=== PATIENT | female | born 1995 | race Caucasian/White ===

== ENCOUNTER 2016-07-24 11:58 | Observation (INO) | payer SELFPAY ==
[~2016-07-24 11:58] MED LIST: GLYCOPYRROLATE INJ 0.4 MG/2 ML VIAL ONE; LIDOCAINE 2% INJ-PF (20 MG/ML) 10 ML AMPUL ONE; NEOSTIGMINE METHYLSULFATE 10 MG/10 ML VIAL ONE; ROCURONIUM BROMIDE INJ 50 MG/5 ML VIAL IV ONE; SUCCINYLCHOLINE CHLORIDE INJ 200 MG/10 ML VIAL ONE
--- NOTE | 2016-07-24 13:19 | ER Document Report ---
ED Medical Screen (RME) - General Stated Complaint: STOMACH PAIN Time seen by provider: 13:16 Mode of Arrival: Ambulatory Information source: Patient Notes: I have greeted and performed a rapid initial assessment of this patient. A comprehensive ED assessment and evaluation of the patient, analysis of test results and completion of the medical decision making process will be conducted by additional ED providers. - HPI Patient complains to provider of: LOWER ABD PAIN Onset: Yesterday Onset/Duration: Sudden Quality of pain: Sharp, Stabbing Severity: Severe Pain Level: 5 - AT ITS WORST, NOW A 2 Associated Symptoms: Abdominal pain, Nausea, Vomiting - X 2 TODAY, ALOT LAST NIGHT. denies: Diarrhea, Fever Exacerbated by: Denies Relieved by: Denies Similar symptoms previously: Yes Recently seen / treated by doctor: No - Related Data Smoking: Non-smoker Frequency of alcohol use: None Drug Abuse: None Pertinent History: OVARIAN CYSTS Allergies/Adverse Reactions: Sulfa (Sulfonamide Antibiotics) Allergy (Verified 07/24/16 13:16) Physical Exam - Vital signs Vitals: Temp Pulse Resp BP Pulse Ox 98.0 F 76 18 117/71 100 07/24/16 12:46 07/24/16 12:46 07/24/16 12:46 07/24/16 12:46 07/24/16 12:46 Course - Vital Signs Vital signs: Temp Pulse Resp BP Pulse Ox 98.0 F 76 18 117/71 100 07/24/16 12:46 07/24/16 12:46 07/24/16 12:46 07/24/16 12:46 07/24/16 12:46
[2016-07-24 13:46] LABS: ABSOLUTE EOSINOPHILS # (AUTO) 0.2 10^3/uL (0.0-0.6); ABSOLUTE LYMPHOCYTES (AUTO) 1.3 10^3/uL (0.5-4.7); ABSOLUTE MONOCYTES (AUTO) 0.6 10^3/uL (0.1-1.4); BASOPHILS % (AUTO) 0.1 % (0-2); EOSINOPHILS % (AUTO) 3.2 % (0-6); HEMATOCRIT 38.5 % (36.0-47.0); HEMOGLOBIN 13.4 g/dL (12.0-15.5); HGB HCT DIFFERENCE 1.7; LYMPHOCYTES % (AUTO) 21.4 % (13-45); MEAN CORPUSCULAR HEMOGLOBIN 30.5 pg (27.0-33.4); MEAN CORPUSCULAR HGB CONC 34.9 g/dL (32.0-36.0); MEAN CORPUSCULAR VOLUME 88 fl (80-97); MONOCYTES % (AUTO) 10.2 % (3-13); RED CELL DISTRIBUTION WIDTH 12.8 % (11.5-14.0); SEGMENTED NEUTROPHILS % (AUTO) 65.1 % (42-78); WHITE BLOOD COUNT 6.2 10^3/uL (4.0-10.5)
[2016-07-24 13:51] LABS: APPEARANCE,URINE SLIGHTLY-CLOUDY; BILIRUBIN,URINE NEGATIVE (NEGATIVE); GLUCOSE, URINE NEGATIVE (NEGATIVE); KETONES,URINE NEGATIVE (NEGATIVE); LEUKOCYTE ESTERASE,URINE TRACE (NEGATIVE); NITRITE,URINE NEGATIVE (NEGATIVE); PROTEIN,URINE NEGATIVE (NEGATIVE); URINE SPECIFIC GRAVITY 1.025; UROBILINOGEN,URINE NEGATIVE mg/dL (<2.0)
[2016-07-24 14:15] LABS: ALANINE AMINOTRANSFERASE 30 U/L (9-52); ALBUMIN 4.4 g/dL (3.5-5.0); ALKALINE PHOSPHATASE 62 U/L (38-126); ANION GAP 11 (5-19); ASPARTATE AMINO TRANSFERASE 19 U/L (14-36); BILIRUBIN,TOTAL 0.7 mg/dL (0.2-1.3); BLOOD UREA NITROGEN 10 mg/dL (7-20); CALCIUM 9.8 mg/dL (8.4-10.2); CARBON DIOXIDE 23 mmol/L (22-30); CHLORIDE 109 mmol/L (98-107); CREATININE RESULT 0.81 mg/dL (0.52-1.25); GLUCOSE 88 mg/dL (75-110); LIPASE 51.1 U/L (23-300); SODIUM 142.7 mmol/L (137-145); TOTAL PROTEIN 7.2 g/dL (6.3-8.2)
[2016-07-24] MEDS ORDERED: KETOROLAC TROMETHAMINE 60 MG/2 ML SDV IM ONE (14:54)
--- NOTE | 2016-07-24 14:54 | ER Document Report ---
ED General - General Mode of Arrival: Ambulatory Information source: Patient TRAVEL OUTSIDE OF THE U[place] IN LAST 30 DAYS: No - HPI Patient complains to provider of: Low Abdominal Pain Onset: Yesterday Onset/Duration: Sudden, Constant Associated symptoms: Vomiting Exacerbated by: Movement <OSITO PELAEZ - Last Filed: 07/24/16 17:08> <RACHELLE SALASMY - Last Filed: 07/24/16 18:07> - General Chief Complaint: Abdominal Pain Stated Complaint: STOMACH PAIN Notes: Patient is a 20-year-old female presenting to the emergency department chief complaint abdominal pain onset last night after roughhousing with her niece. Patient states that the pain was so bad that she began vomiting. She continued to vomit this morning. Patient has taken Tylenol for her pain, but states that it has been constant since approximately 2300. Patient denies dysuria, pain with intercourse, history of STD, or back pain. Patient has a family history of ovarian cysts and states that she has had an ovarian cyst in the past. Patient also mentions that she is being treated for UTI for the past 2 days. (OSITO PELAEZ) - Related Data Allergies/Adverse Reactions: Sulfa (Sulfonamide Antibiotics) Allergy (Verified 07/24/16 13:16) Home Medications: Current Home Medications Ciprofloxacin HCl [Cipro 500 mg Tablet] 500 mg PO Q12 07/24/16 [History] Past Medical History - General Information source: Patient - Social History Smoking Status: Unknown if Ever Smoked Chew tobacco use (# tins/day): No Frequency of alcohol use: None Drug Abuse: None Lives with: Spouse/Significant other Family History: Reviewed & Not Pertinent Patient has suicidal ideation: No Patient has homicidal ideation: No Renal/ Medical History: Reports: Hx Ovarian Cysts. Denies: Hx Peritoneal Dialysis <OSITO PELAEZ - Last Filed: 07/24/16 17:08> Review of Systems - Review of Systems Constitutional: No symptoms reported EENT: No symptoms reported Cardiovascular: No symptoms reported Respiratory: No symptoms reported Gastrointestinal: See HPI, Abdominal pain - Suprapubic, Vomiting Genitourinary: No symptoms reported. denies: Dysuria Female Genitourinary: No symptoms reported. denies: Vaginal discharge, Painful intercourse Musculoskeletal: No symptoms reported. denies: Back pain Skin: No symptoms reported Hematologic/Lymphatic: No symptoms reported Neurological/Psychological: No symptoms reported -: Yes All other systems reviewed and negative <OSITO PELAEZ - Last Filed: 07/24/16 17:08> Physical Exam - Vital signs Interpretation: Normal - General General appearance: Alert - HEENT Head: Normocephalic, Atraumatic Eyes: Normal Pupils: PERRL - Respiratory Respiratory status: No respiratory distress Chest status: Nontender Breath sounds: Normal Chest palpation: Normal - Cardiovascular Rhythm: Regular Heart sounds: Normal auscultation Murmur: No - Abdominal Distension: No distension Bowel sounds: Normal Tenderness: Tender - Tenderness to palpation over entire suprapubic region.. No : Guarding, Rebound - No rebound or rigidity. Organomegaly: No organomegaly - Back Back: Normal, Nontender - Extremities General upper extremity: Normal inspection, Nontender, Normal color, Normal ROM , Normal temperature General lower extremity: Normal inspection, Nontender, Normal color, Normal ROM , Normal temperature - Neurological Neuro grossly intact: Yes Cognition: Normal Orientation: AAOx4 Fredy Coma Scale Eye Opening: Spontaneous Fredy Coma Scale Verbal: Oriented Fredy Coma Scale Motor: Obeys Commands Fredy Coma Scale Total: 15 Speech: Normal - Psychological Associated symptoms: Normal affect, Normal mood - Skin Skin Temperature: Warm Skin Moisture: Dry Skin Color: Normal <OSITO PELAEZ - Last Filed: 07/24/16 17:08> Course - Laboratory Result Diagrams: 07/24/16 13:20 07/24/16 13:20 - Consults Dr. Payne Time consulted: 16:57 <OISTO PELAEZ - Last Filed: 07/24/16 17:08> - Laboratory Result Diagrams: 07/24/16 13:20 07/24/16 13:20 <FREDY SALAS - Last Filed: 07/24/16 18:07> - Re-evaluation Re-evalutation: 07/24/16 17:00 I personally performed the services described in the documentation, reviewed and edited the documentation which was dictated to my scribe in my presence, and it accurately records my words and actions. Patient presents with severe lower abdominal pain. Patient is 20-year-old previously healthy female onset of severe abdominal pain last evening constant severe doubling her over last several hours and then there was a period where got a little bit better. It was persistent today and she came for evaluation. She is from out of town no medical problems is with no history of gynecological surgery she thinks she may have had an ovarian cyst one time in the past but is never been diagnosed with 1. She has a strong family history of ovarian cyst. There is no associated fever or chills back pain or urinary symptoms although she went to the urgent care 2 days ago and was diagnosed with UTI on Cipro she has no history of pelvic pain vaginal discharge gonorrhea or chlamydia. She states at the onset of the pain and this morning at the greatest intensity of the pain she was vomiting with this. On examination she has entire lower abdominal tenderness worse on the right with some guarding but no rebound rigidity she is normotensive and not tachycardic. Stat pelvic ultrasound after negative urine test called by radiologist complex ovarian mass on the right side with a large amount of free fluid concerning for blood. Ordered a urinary hCG which was negative and do a blood hCG. IV fluids pain medication spoke with the on-call LIGHT OUT EXAMINER physician Dr. Mayer states that she herself will not be able to come see the patient for several hours however she is going to contact one of her partners try to get them to come down and see the patient. And states that she will relay back to us when she find someone to come and evaluate the patient. 07/24/16 18:06 Dr. Altamirano in the ED 1730 to see evaluate patient take patient to the operating room. (FREDY SALAS) - Vital Signs Vital signs: Temp Pulse Resp BP Pulse Ox 98.0 F 76 18 117/71 100 07/24/16 12:46 07/24/16 12:46 07/24/16 12:46 07/24/16 12:46 07/24/16 12:46 - Laboratory Laboratory results interpreted by me: 07/24/16 07/24/16 07/24/16 13:20 13:20 13:20 Plt Count 146 L Chloride 109 H Ur Leukocyte Esterase TRACE H - Consults Dr. Payne Reason for consultation: 07/24/16 16:[address] Payne about patient's case. Dr. Payne states that she is unable to come down to the ED at this time, but will attempt to contact one of her partners to come in. (OSITO PELAEZ) Critical Care Note - Critical Care Note Total time excluding time spent on procedures (mins): 60 <FREDY SALAS - Last Filed: 07/24/16 18:07> Discharge <OSITO PELAEZ - Last Filed: 07/24/16 17:08> - Discharge Admitting Provider: [facility] Admitted: Surgical Floor <FREDY SALAS - Last Filed: 07/24/16 18:07> - Discharge Clinical Impression: complex ovarian mass , acute hemorrhagic free fluid Condition: Stable Disposition: ADMITTED INPATIENT Scribe Documentation - Scribe Written by Scribe:: Osito Pelaez 07/24/2016 1454 acting as scribe for :: Adan <OSITO PELAEZ - Last Filed: 07/24/16 17:08>
[2016-07-24 15:03] LABS: URINE BARBITURATES SCREEN NEGATIVE; URINE METHADONE SCREEN NEGATIVE; URINE OPIATES LOW NEGATIVE; URINE PHENCYCLIDINE SCREEN NEGATIVE
[2016-07-24] MEDS ORDERED: NORMAL SALINE 1000 ML 1,000 ML IV ONE (16:47)
[2016-07-24] MEDS ORDERED: FENTANYL CITRATE INJ/PF 100 MCG/2 ML AMPUL IV ONE ×2 (16:59→18:09)
--- NOTE | 2016-07-24 17:58 | CONSULTATION REPORT E ---
Consultation Report NAME: ELIO BALTAZAR : 1995 AGE: 20Y DATE: 07/24/2016 TO: KAREN LITTLE M.D. FROM: Tung RUIZ Requesting Physician HISTORY OF PRESENT ILLNESS: The patient is a 20-year-old female, 0, with last menstrual period of 06/30, presenting today with what appears to be a hemorrhagic corpus luteum cyst that is actively bleeding. Ultrasound shows blood surrounding the uterus. Her abdomen is very tender, although she feels better now after some pain medicines. PAST MEDICAL HISTORY: Negative. PAST SURGICAL HISTORY: Negative. ALLERGIES: SULFA. MEDICATIONS: None. PROFESSIONAL BUILDER HISTORY: She is not on control and her test is negative. PHYSICAL EXAMINATION: VITAL SIGNS: She is afebrile and vital signs are stable. HEENT: Unremarkable. NECK: Supple. LUNGS: Clear. HEART: Regular rate and rhythm. ABDOMEN: Tender in the low pelvis. There is perhaps mild guarding. PELVIC: Deferred to the OR. LABORATORY DATA: Her labs show stable H and H at this time; however, this may drop. Her beta hCG is less than 2. ASSESSMENT: Likely bleeding corpus luteum cyst. PLAN: Laparoscopy to evacuate the blood and cauterize the bleeding vessel. We have discussed the risks and benefits of laparoscopy. All attempts will be made to converse the ovaries and tubes. DICTATING PHYSICIAN: KAREN LITTLE M.D. [id number] PHY#: [id number] ID: [id number] JOB#: [id number] ACCT: [id number] cc:KAREN LITTLE M.D. >
[2016-07-24] MEDS ORDERED: OXYCODONE-ACETAMINOPHEN 5-325 MG TABLET PO PRN (18:17)
[2016-07-24] MEDS ORDERED: RINGERS SOLUTION,LACTATED 1,000 ML IV PRN (18:19)
[2016-07-24] MEDS ORDERED: ONDANSETRON 4 MG TAB.RAPDIS PO PRN (18:20)
[2016-07-24] MEDS ORDERED: FENTANYL CITRATE INJ/PF 250 MCG/5 ML AMPULE ONE (19:17)
[2016-07-24] MEDS ORDERED: EPHEDRINE SULFATE INJ 50 MG/1 ML AMPULE ONE (19:18)
[2016-07-24] MEDS ORDERED: MIDAZOLAM 2 MG/2 ML INJ ONE (19:18)
[2016-07-24] MEDS ORDERED: ACETAMINOPHEN 100 ML IV ONE (19:19)
[2016-07-24] MEDS ORDERED: DEXMEDETOMIDINE INJ 80 MCG/20 ML VIAL IV ONE (19:19)
[2016-07-24] MEDS ORDERED: PROPOFOL INJ 200 MG/20 ML VIAL IV ONE (19:19)
[2016-07-24] MEDS ORDERED: IBUPROFEN 800 MG TABLET PO ONE (19:30)
[2016-07-24] MEDS ORDERED: MEPERIDINE HCL/PF INJ 25 MG/1 ML DISP.SYRIN IV PRN (20:12)
[2016-07-24] MEDS ORDERED: MORPHINE SULFATE 10 MG/ML INJ IV PRN (20:12)
[2016-07-24] MEDS ORDERED: FENTANYL CITRATE INJ/PF 100 MCG/2 ML AMPUL IV PRN ×3 (20:12)
[2016-07-24] MEDS ORDERED: PROMETHAZINE HCL INJ 25 MG/1 ML VIAL IV PRN ×2 (20:12)
[2016-07-24] MEDS ORDERED: DIPHENHYDRAMINE HCL 50 MG/ML VIAL IV PRN (20:12)
--- NOTE | 2016-07-24 21:00 | Operative Report ---
Operative Report DATE OF SURGERY: 07/24/16 PREOPERATIVE DIAGNOSIS: Bleeding ovarian cyst POSTOPERATIVE DIAGNOSIS: Bleeding right corpus luteum cyst OPERATION: Laparoscopy and removal of right corpus luteum cyst SURGEON: KAREN BERNAL ASSEMBLER INSTALLER GENERAL: OR staff ANESTHESIA: GA TISSUE REMOVED OR ALTERED: Right corpus luteum cyst COMPLICATIONS: None ESTIMATED BLOOD LOSS: 200 mL INTRAOPERATIVE FINDINGS: Bleeding right corpus luteum cyst PROCEDURE: Patient was taken to the OR and placed in supine position. Gen. anesthesia was induced. She was placed in dorsolithotomy position using Wali stirrups. Perineum and vagina and abdomen were prepared and draped in sterile fashion. An incision was made the umbilicus and the natural umbilical defect was identified and dilated using Lorri clamp. This allowed a 5 mm port to be placed bluntly. Laparoscopy confirmed appropriate placement. Suprapubic incision was made 5 mm port placed sharply under laparoscopic visualization. A right lateral incision was made and a 5 mm port was placed sharply under laparoscopic visualization. Pelvis was irrigated and suctioned free of fluid. This was blood. The left ovary appeared normal the right ovary was bleeding just below the infundibulopelvic pedicle. The site was a bleeding corpus luteum cyst at the very tip of the ovary just below the mandibular pelvic pedicle. The corpus luteum cyst was removed. Cautery was used to achieve some degree of hemostasis however the site continued to lose at this point. FloSeal was then used and injected into the ovarian cyst site. The thrombin and the FloSeal appeared to stop nearly all the bleeding. The ovary was allowed to rest in its natural configuration. The pelvis was irrigated of blood. The pressure was reduced by allowing some of the CO2 gas to leak out of the abdomen. With the intra-abdominal pressure reduced and the ovary not on tension it still appeared hemostatic. This point allowed the remainder of the CO2 gas to leak out. The suprapubic port and left lateral port were removed. The umbilical port and scope were removed at the same time. The fascia at the umbilicus was closed with a 2-0 Vicryl and the skin closed with 4-0 undyed Vicryl stitch and all 3 port sites. The sponge stick was removed from the vagina. Patient was extubated in the OR and taken to recovery in stable condition.
[2016-07-24] MEDS ORDERED: FENTANYL CITRATE INJ/PF 100 MCG/2 ML AMPUL ONE (21:20)
[2016-07-24] MEDS ORDERED: PROMETHAZINE HCL INJ 25 MG/1 ML VIAL ONE (21:40)
[2016-07-24] MEDS ORDERED: ONDANSETRON HCL INJ/PF 4 MG/2 ML SDV IV PRN (23:15)
[2016-07-25] MEDS: OXYCODONE-ACETAMINOPHEN 5-325 MG TABLET PO PRN ×2 (01:13→06:46)
[2016-07-25 07:31] LABS: ABSOLUTE EOSINOPHILS # (AUTO) 0.2 10^3/uL (0.0-0.6); ABSOLUTE LYMPHOCYTES (AUTO) 1.6 10^3/uL (0.5-4.7); ABSOLUTE MONOCYTES (AUTO) 0.6 10^3/uL (0.1-1.4); ABSOLUTE NEUT (AUTO) 2.6 10^3/uL (1.7-8.2); BASOPHILS % (AUTO) 0.2 % (0-2); EOSINOPHILS % (AUTO) 3.8 % (0-6); HEMATOCRIT 32.2 % (36.0-47.0); HEMOGLOBIN 11.4 g/dL (12.0-15.5); LYMPHOCYTES % (AUTO) 31.9 % (13-45); MEAN CORPUSCULAR HGB CONC 35.5 g/dL (32.0-36.0); MEAN CORPUSCULAR VOLUME 87 fl (80-97); MONOCYTES % (AUTO) 12.4 % (3-13); RED BLOOD COUNT 3.69 10^6/uL (3.72-5.28); RED CELL DISTRIBUTION WIDTH 12.4 % (11.5-14.0); SEGMENTED NEUTROPHILS % (AUTO) 51.7 % (42-78); WHITE BLOOD COUNT 4.9 10^3/uL (4.0-10.5)
[2016-07-25 08:51] VITALS: BP 113/69
[2016-07-25] MEDS ORDERED: IBUPROFEN 800 MG TABLET PO SCH (10:00)
--- NOTE | 2016-07-25 10:04 | PDOC PROGRESS REPORT ---
Subjective Progress Note for:: 08/01/16 Subjective:: She states she is doing well following a regular diet ambulating well. She is ready to go home Physical Exam - Physical Exam Vital Signs: Temp Pulse Resp BP Pulse Ox 98.5 F 68 16 113/69 99 07/25/16 08:48 07/25/16 08:48 07/25/16 08:48 07/25/16 07:52 07/25/16 08:48 Intake & Output 07/24/16 07/25/16 07/26/16 06:59 06:59 06:59 Intake Total 1200 Output Total 390 Balance 810 General appearance: PRESENT: no acute distress, well-developed, well-nourished GI/Abdominal exam: PRESENT: normal bowel sounds, soft. ABSENT: distended, guarding, mass, organolmegaly, rebound, tenderness Result Laboratory Results: 07/25/16 06:15 07/24/16 07/25/16 19:00 06:15 WBC 4.9 RBC 3.69 L Hgb 11.4 L Hct 32.2 L MCV 87 MCH 31.0 MCHC 35.5 RDW 12.4 Plt Count 125 L Seg Neutrophils % 51.7 Lymphocytes % 31.9 Monocytes % 12.4 Eosinophils % 3.8 Basophils % 0.2 Absolute Neutrophils 2.6 Absolute Lymphocytes 1.6 Absolute Monocytes 0.6 Absolute Eosinophils 0.2 Absolute Basophils 0.0 Blood Type O POSITIVE Antibody Screen NEGATIVE Impressions: Transvaginal US 07/24/16 14:55 IMPRESSION: Large amount of free pelvic fluid with low level internal echoes worrisome for hemorrhage Convex right adnexal mass with cystic and solid components, and peripheral color flow and Doppler waveforms suggesting against torsion. This could represent an of ovary with a hemorrhagic cyst, ovary with tumor, or ovary with ectopic . Uterus, left ovary unremarkable. Assessment & Plan - Diagnosis (1) Corpus luteum cyst hemorrhage Is this a current diagnosis for this admission?: Yes - Time Time Spent with patient: Less than 15 minutes Medications reviewed and adjusted accordingly: Yes Anticipated discharge: Home Within: within 24 hours - We discussed home care and that she is able to shower normally. She should follow up in 1 week.
--- NOTE | 2016-07-25 10:11 | PDOC DISCHARGE SUMMARY ---
Final Diagnosis Discharge Date: 07/25/16 - Final Diagnosis (1) Corpus luteum cyst hemorrhage Is this a current diagnosis for this admission?: Yes Discharge Data - Discharge Medication Home Medications: Oxycodone HCl/Acetaminophen [Percocet 5-325 mg Tablet] 1 tab PO Q6HP PRN #30 tablet 07/25/16 - Diagnosis Test Laboratory: Temp Pulse Resp BP Pulse Ox 98.5 F 68 16 113/69 99 07/25/16 08:48 07/25/16 08:48 07/25/16 08:48 07/25/16 07:52 07/25/16 08:48 07/25/16 06:15 RBC 3.69 L Hgb 11.4 L Hct 32.2 L - Discharge information/Instructions Discharge Activity: Activity As Tolerated, Balance Activity w/Rest, No Driving, No Lifting Over 10 Pounds, No Lifting/Push/Pulling, Pelvic Rest, No tub bath Discharge Diet: As Tolerated Disposition: HOME, SELF-CARE Follow up with: [facility] in: 1, Weeks - Patient was admitted and underwent a laparoscopy for a ruptured corpus luteum cyst. During the laparoscopy the corpus luteum cyst was removed and hemostasis was obtained with cautery and FloSeal. Please see the operative report for details. Postop day 1 she is doing well tolerating a regular diet. She states she is ready to go home. She is going to be discharged to home to rest. She'll follow up in 1 week. Condition on discharge is good.
== END 2016-07-25 11:15 | disposition home or self-care (01) ==
LOC: ER 11:58 → EH 18:06 → UNDOADMOB 18:11 → EH 18:11 → 2N 22:10
PROVIDERS: ADMIT Obstetrics & Gynecology; ATTEND Obstetrics & Gynecology
PROC: 3E023GC Introduction of Other Therapeutic Substance into Muscle, Percutaneous Approach (ICD-10-PCS; 2016-07-24)
PROC: 3E033GC Introduction of Other Therapeutic Substance into Peripheral Vein, Percutaneous Approach (ICD-10-PCS; 2016-07-24)
PROC: 3E033GC Introduction of Other Therapeutic Substance into Peripheral Vein, Percutaneous Approach (ICD-10-PCS; 2016-07-24)
PROC: 3E0337Z Introduction of Electrolytic and Water Balance Substance into Peripheral Vein, Percutaneous Approach (ICD-10-PCS; 2016-07-24)
PROC: 0UB04ZZ Excision of Right Ovary, Percutaneous Endoscopic Approach (ICD-10-PCS; principal; 2016-07-24 19:30)
DX: N83.11 Corpus luteum cyst of right ovary (principal)
CPT/HCPCS: 96376; 99291; 96372; 96361; 96374; 86900; 86901; 36415 ×2; 86850; 84702; 83690; 85025 ×2; 80053; 81001; 80307; 86920; 88304 ×2; 76830; 93976; 58662; G0378 ×2; J2250; J3490 ×3; J1885; S0119; J3010 ×2; J2550; J0330; J2405; J7030; J2704; J0131; 840

== ENCOUNTER 2016-09-29 18:28 | Emergency (ER) | payer SELFPAY ==
--- NOTE | 2016-09-29 20:14 | ER Document Report ---
ED General - General Chief Complaint: Abdominal Pain Stated Complaint: LOWER ABDOMINAL PAIN Mode of Arrival: Ambulatory Information source: Patient Notes: Patient presents to the emergency department with complaints of lower abdominal , back pain discomfort with voiding and sitting down. She reports symptoms since yesterday. Reports history of ovarian cyst rupture in July. She reports yesterday this felt like the same type of pain and discomfort but does not feel like it today. She reports the pain comes and goes and is sharp when it comes. She denies fever or diarrhea reports vomited twice yesterday. Patient also reports vaginal discharge with odor. Reports she is sexually active one partner and uses condoms for control. Patient reported pain 4/ 5 when she first arrived but reports no pain at this time. Declines pain medication. TRAVEL OUTSIDE OF THE [place] IN LAST 30 DAYS: No - HPI Onset: Yesterday Onset/Duration: Sudden, Waxing and waning Quality of pain: Sharp Severity: None - now Associated symptoms: Vomiting - yesterday Exacerbated by: Sitting Relieved by: Denies Similar symptoms previously: Yes Recently seen / treated by doctor: No - Related Data Allergies/Adverse Reactions: Sulfa (Sulfonamide Antibiotics) Allergy (Verified 09/29/16 18:32) Past Medical History - General Information source: Patient Last Menstrual Period: 09/16/16 - Social History Smoking Status: Unknown if Ever Smoked Cigarette use (# per day): No Frequency of alcohol use: None Drug Abuse: None Lives with: Family - visiting from [place] Family History: Reviewed & Not Pertinent Patient has suicidal ideation: No Patient has homicidal ideation: No Renal/ Medical History: Reports: Hx Ovarian Cysts. Denies: Hx Peritoneal Dialysis Past Surgical History: Reports: Hx Gynecologic Surgery Review of Systems - Review of Systems Notes: Review HPI for review of systems., All other systems negative Physical Exam - Vital signs Vitals: Temp Pulse Resp BP Pulse Ox 97.8 F 64 16 114/70 100 09/29/16 18:32 09/29/16 18:32 09/29/16 18:32 09/29/16 18:32 09/29/16 18:32 - Notes Notes: PHYSICAL EXAMINATION: GENERAL: Well-appearing and in no acute distress nontoxic looking HEAD: Atraumatic, normocephalic. EYES: Pupils equal round and reactive to light, extraocular movements intact, sclera anicteric, conjunctiva are normal. ENT: nares patent, oropharynx clear without exudates. Moist mucous membranes. NECK: Normal range of motion, supple without lymphadenopathy LUNGS: CTAB and equal. No wheezes rales or rhonchi. HEART: Regular rate and rhythm without murmurs ABDOMEN: Soft, lower abdominal tenderness. No guarding, no rebound BACK: No pain on palpation EXTREMITIES: Normal range of motion, no pitting edema. No cyanosis. NEUROLOGICAL: Cranial nerves grossly intact. Normal sensory/motor exams. PSYCH: Normal mood, normal affect. SKIN: Warm, Dry, normal turgor, no rashes or lesions noted - Genitourinary External exam: Normal Speculum exam: Vaginal discharge Vaginal bleeding: None Bimanuel exam: Normal Course - Re-evaluation Re-evalutation: 09/29/16 20:15 Patient instructed on pending labs pelvic ultrasound. 09/29/16 22:29 Tylenol given for pain and patient reports no pain at this time. Updated on ultrasound which was negative. Labs unremarkable, Wet mount shows yeast and BV. Patient will be treated with Diflucan and Flagyl. She does not wish to wait for STD results and will be called if they are positive. Patient was also instructed on the importance of follow-up with her SUPERVISOR SOLDERING. - Vital Signs Vital signs: Temp Pulse Resp BP Pulse Ox 97.8 F 84 17 123/75 99 09/29/16 18:32 09/29/16 22:41 09/29/16 22:41 09/29/16 22:41 09/29/16 22:41 - Laboratory Result Diagrams: 09/29/16 21:09 09/29/16 21:09 Laboratory results interpreted by me: 09/29/16 09/29/16 20:15 21:09 Monocytes % 13.1 H Eosinophils % 6.7 H Ur Leukocyte Esterase MODERATE H - Diagnostic Test Radiology reviewed: Image reviewed, Reports reviewed - US/U/ S NON OB PEL TV W/DOPPLER IMPRESSION: NORMAL TRANSVAGINAL PELVIC ULTRASOUND. SPECIFICALLY, INTERVAL RESOLUTION OF ABNORMAL FINDINGS DEMONSTRATED ON 2016 ULTRASOUND Procedures - Pelvic Exam Pelvic exam Cultures obtained: Yes Wet prep obtained: Yes Herpes culture obtained: No POC sent to lab: No Foreign body removed: No Bimanual exam performed: Yes Witnessed by: juany PCT Discharge - Discharge Clinical Impression: Lower abdominal pain, Vaginal discharge, Bacterial vaginosis, Yeast infection Condition: Stable Disposition: HOME, SELF-CARE Instructions: Abdominal Pain ([facility]), Vaginosis, Bacterial ([facility]), Vaginal Yeast Infection ([facility]), Fluconazole ([facility]), Metronidazole ([facility]) Additional Instructions: *You have been evaluated for abdominal pain, bacterial vaginosis, yeast infection *Take medication as prescribed *Follow up with your TIE MILL OPERATOR upon return to [place] *Avoid sexual intercourse until follow up with crusher operator *Return to ED for worsening condition, changes, needs, concerns *Return to ED if not better in 24 hours Prescriptions: Metronidazole [Flagyl 500 mg Tablet] 500 mg PO BID #14 tablet
[2016-09-29 20:50] LABS: AMORPHOUS SEDIMENT,URINE 1+ /HPF; APPEARANCE,URINE CLOUDY; BILIRUBIN,URINE NEGATIVE (NEGATIVE); GLUCOSE, URINE NEGATIVE (NEGATIVE); KETONES,URINE NEGATIVE (NEGATIVE); LEUKOCYTE ESTERASE,URINE MODERATE (NEGATIVE); NITRITE,URINE NEGATIVE (NEGATIVE); PROTEIN,URINE NEGATIVE (NEGATIVE); URINE SPECIFIC GRAVITY 1.024; UROBILINOGEN,URINE NEGATIVE mg/dL (<2.0)
[2016-09-29] MEDS ORDERED: ACETAMINOPHEN 325 MG TABLET PO ONE (21:19)
[2016-09-29 21:22] LABS: ABSOLUTE EOSINOPHILS # (AUTO) 0.4 10^3/uL (0.0-0.6); ABSOLUTE LYMPHOCYTES (AUTO) 2.1 10^3/uL (0.5-4.7); ABSOLUTE MONOCYTES (AUTO) 0.7 10^3/uL (0.1-1.4); ABSOLUTE NEUT (AUTO) 2.4 10^3/uL (1.7-8.2); BASOPHILS % (AUTO) 0.4 % (0-2); EOSINOPHILS % (AUTO) 6.7 % (0-6); HEMATOCRIT 37.2 % (36.0-47.0); HEMOGLOBIN 13.2 g/dL (12.0-15.5); HGB HCT DIFFERENCE 2.4; LYMPHOCYTES % (AUTO) 37.4 % (13-45); MEAN CORPUSCULAR HEMOGLOBIN 31.5 pg (27.0-33.4); MEAN CORPUSCULAR HGB CONC 35.4 g/dL (32.0-36.0); MEAN CORPUSCULAR VOLUME 89 fl (80-97); MONOCYTES % (AUTO) 13.1 % (3-13); RED BLOOD COUNT 4.19 10^6/uL (3.72-5.28); RED CELL DISTRIBUTION WIDTH 12.3 % (11.5-14.0); SEGMENTED NEUTROPHILS % (AUTO) 42.4 % (42-78); WHITE BLOOD COUNT 5.7 10^3/uL (4.0-10.5)
[2016-09-29 21:42] LABS: ALANINE AMINOTRANSFERASE 33 U/L (9-52); ALKALINE PHOSPHATASE 57 U/L (38-126); ANION GAP 11 (5-19); ASPARTATE AMINO TRANSFERASE 24 U/L (14-36); BILIRUBIN,DIRECT 0.3 mg/dL (0.0-0.4); BILIRUBIN,TOTAL 0.4 mg/dL (0.2-1.3); BLOOD UREA NITROGEN 14 mg/dL (7-20); CALCIUM 9.4 mg/dL (8.4-10.2); CARBON DIOXIDE 25 mmol/L (22-30); CHLORIDE 106 mmol/L (98-107); CREATININE RESULT 0.81 mg/dL (0.52-1.25); GLUCOSE 89 mg/dL (75-110); POTASSIUM 3.8 mmol/L (3.6-5.0); SODIUM 142.2 mmol/L (137-145); TOTAL PROTEIN 6.7 g/dL (6.3-8.2)
[2016-09-29 22:09] LABS: CHLAM PCR NOT DETECTED (NOT DETECT)
[2016-09-29] MEDS ORDERED: FLUCONAZOLE 100 MG TABLET PO ONE (22:29)
[2016-09-29] MEDS ORDERED: METRONIDAZOLE 500 MG TABLET PO ONE (22:29)
[2016-09-29 22:42] VITALS: BP 123/75
== END 2016-09-29 22:42 | disposition home or self-care (01) ==
LOC: ER 18:28
DX: N76.0 Acute vaginitis (principal); B96.89 Other specified bacterial agents as the cause of diseases classified elsewhere; B37.49 Other urogenital candidiasis; R10.30 Lower abdominal pain, unspecified; R11.10 Vomiting, unspecified; Z88.2 Allergy status to sulfonamides; Z87.42 Personal history of other diseases of the female genital tract
CPT/HCPCS: 36415; 76830; 80053; 81001; 84703; 85025; 87210; 87491; 87591; 93976; 99284

== ENCOUNTER → 2017-02-19 | Outpatient (CLI) | payer MEDICAID ==
--- NOTE | 2017-02-19 16:19 | RADIOLOGY REPORT (SQ) ---
EXAM DESCRIPTION: U/S [id number] TRNABD 1GES W/ODOP COMPLETED DATE/TIME: 02/19/2017 3:53 pm REASON FOR STUDY: ENCOUNTER FOR SUPERVISION OF NORMAL FIRST TRIMESTER Z34.01 ENCNTR FOR S UPRVSN OF NORMAL FIRST PREG, FIRST TRIMES COMPARISON: None. TECHNIQUE: Transabdominal static and realtime grayscale images acquired of the pelvis. Additional se lected spectral and color Doppler images recorded. All images stored on PACs. bHCG: Not applicable. LIMITATIONS: None. FINDINGS: FETUS: Living intrauterine . EGA: 10 week 3 day. ELBERT: 09/14/2017. FHR: 180 beats per minute. SUBCHORIONIC BLEED: No. SIZE OF BLEED: Not applicable. UTERUS: No masses. No anomalies. CERVICAL LENGTH: 3.2 cm. Closed. RIGHT ADNEXA: Normal ovary with normal vascular flow. No adnexal free fluid. Corpus Luteum measuring 2.2 cm. LEFT ADNEXA: Ovary not identified. No adnexal free fluid. No adnexal masses. FREE FLUID: None. OTHER: No other significant finding. IMPRESSION: LIVING INTRAUTERINE . EGA 10 WEEK 3 DAY. Trimester of : First - 0 to 13 weeks. TECHNICAL DOCUMENTATION: JOB ID: [id number] [employer]- All Rights Reserved
== END ==
LOC: RAD 15:07
PROVIDERS: ATTEND Nurse Practitioner Women's Health
DX: Z34.01 Encounter for supervision of normal first pregnancy, first trimester (principal)
CPT/HCPCS: 76801